=== PATIENT | female | born 1965 | race African-American/Black ===

== ENCOUNTER 2019-09-17 09:17 | Emergency (ER) | payer OTHER ==
[~2019-09-17] VITALS: Ht 172.7 cm; Wt 84.4 kg
[2019-09-17 12:07] LABS: Urine Amorphous Crystal FEW /hpf (None Seen); Urine Bacteria MOD /hpf (None Seen); Urine Blood TRACE /uL (Negative); Urine Mucus FEW (None Seen); Urine Specific Gravity 1.017 (1.001-1.035); Urine WBC 39 /hpf (0 - 5)
[2019-09-17 13:55] LABS: Basophils # (auto) 0.1 10 ^3/uL (0-0.2); Basophils % (auto) 0.7 % (0.0-2.0); Eosinophils # (auto) 0 10 ^3/uL (0-0.8); Eosinophils % (auto) 0.3 % (0.0-7.0); Hematocrit 38.8 % (36.0-46.0); Lymphocytes # (auto) 2.4 10 ^3/uL (0.4-5.4); Lymphocytes % (auto) 22.9 % (10.0-50.0); Mean Corpuscular Hemoglobin 27.8 pg (28.0-32.0); Mean Corpuscular Hgb Conc. 33.4 g/dL (32.0-36.0); Mean Corpuscular Volume 83.2 fL (80.0-100.0); Monocytes # (auto) 0.5 10 ^3/uL (0-1.3); Monocytes % (auto) 4.3 % (0.0-12.0); Neutrophils # (auto) 7.6 10 ^3/uL (1.6-8.6); Neutrophils % (auto) 71.8 % (37.0-80.0); Nucleated Red Blood Cells % 0.1 %; Platelet Count (auto) 421 10^3/uL (140-450); Red Blood Cells 4.66 10^6/uL (4.0-5.20); Red Cell Distribution Width 13.4 % (11.8-14.3); White Blood Cell 10.6 10^3/uL (4.4-10.8)
[2019-09-17 14:10] LABS: Alanine Aminotransferase 22 U/L (13-56); Albumin 3.9 g/dL (3.4-5.0); Anion Gap 8 (5-15); Aspartate Aminotransferase 23 U/L (15-37); BUN/Creatinine Ratio 9.2; Blood Urea Nitrogen 9 mg/dL (7-18); Calcium 9.1 mg/dL (8.5-10.1); Carbon Dioxide 24 mmol/L (21-32); Chloride 106 mmol/L (98-107); GFR African American 76 mL/min; GFR Non-African American 63 mL/min; Glucose 111 mg/dL (74-106); Magnesium 2.7 mg/dL (1.6-2.6); Potassium 3.7 mmol/L (3.5-5.1); Sodium 138 mmol/L (136-145)
[2019-09-17 14:15] LABS: Alkaline Phosphatase 116 U/L (45-117); Bilirubin, Total 0.5 mg/dL (0.2-1.0); Total Protein 8.4 g/dL (6.4-8.2)
[2019-09-17 17:40] VITALS: BP 150/84
== END 2019-09-17 18:59 | disposition home or self-care (01) ==
LOC: ER 09:17
DX: R55 Syncope and collapse (principal); N39.0 Urinary tract infection, site not specified; E78.5 Hyperlipidemia, unspecified; Z90.710 Acquired absence of both cervix and uterus
CPT/HCPCS: 36415; 70450; 71046; 80053; 81001; 83735; 84484; 85025; 93005

== ENCOUNTER 2019-09-21 20:40 | Inpatient (IN) | payer OTHER ==
[~2019-09-21] VITALS: Ht 172.7 cm; Wt 85.2 kg
[2019-09-21 23:45] LABS: Basophils # (auto) 0.1 10 ^3/uL (0-0.2); Basophils % (auto) 0.7 % (0.0-2.0); Eosinophils # (auto) 0 10 ^3/uL (0-0.8); Eosinophils % (auto) 0.2 % (0.0-7.0); Hematocrit 39.7 % (36.0-46.0); Hemoglobin 13.2 g/dL (12.2-16.2); Lymphocytes # (auto) 1.3 10 ^3/uL (0.4-5.4); Lymphocytes % (auto) 11.5 % (10.0-50.0); Mean Corpuscular Hemoglobin 27.4 pg (28.0-32.0); Mean Corpuscular Hgb Conc. 33.1 g/dL (32.0-36.0); Mean Corpuscular Volume 82.7 fL (80.0-100.0); Monocytes # (auto) 0.5 10 ^3/uL (0-1.3); Monocytes % (auto) 4.7 % (0.0-12.0); Neutrophils # (auto) 9.5 10 ^3/uL (1.6-8.6); Neutrophils % (auto) 82.9 % (37.0-80.0); Nucleated Red Blood Cells % 0.1 %; Platelet Count (auto) 396 10^3/uL (140-450); Red Blood Cells 4.81 10^6/uL (4.0-5.20); Red Cell Distribution Width 13.4 % (11.8-14.3); White Blood Cell 11.5 10^3/uL (4.4-10.8)
[2019-09-22 00:16] LABS: Albumin 3.7 g/dL (3.4-5.0); Anion Gap 10 (5-15); BUN/Creatinine Ratio 11.8; Blood Urea Nitrogen 12 mg/dL (7-18); Calcium 9.2 mg/dL (8.5-10.1); Carbon Dioxide 24 mmol/L (21-32); Chloride 104 mmol/L (98-107); GFR African American 73 mL/min; GFR Non-African American 60 mL/min; Glucose 126 mg/dL (74-106); Magnesium 2.6 mg/dL (1.6-2.6); Potassium 3.9 mmol/L (3.5-5.1); Sodium 138 mmol/L (136-145)
[2019-09-22 00:21] LABS: Alanine Aminotransferase 24 U/L (13-56); Alkaline Phosphatase 112 U/L (45-117); Aspartate Aminotransferase 29 U/L (15-37); Bilirubin, Total 0.6 mg/dL (0.2-1.0); Total Protein 8.3 g/dL (6.4-8.2)
[2019-09-22] MEDS ORDERED: SODIUM CHLORIDE 0.9% 1,000 ML IVB ONE (02:40)
[2019-09-22] MEDS ORDERED: LORazepam 2MG/ML-1ML VIAL IV ONE (02:45)
[2019-09-22] MEDS ORDERED: ONDANSETRON HCL 4 MG/2 ML VIAL IV PRN (05:45)
[2019-09-22] MEDS ORDERED: TEMAZEPAM 15 MG CAP PO PRN (05:45)
[2019-09-22] MEDS ORDERED: ACETAMINOPHEN 325 MG TAB PO PRN (05:45)
[2019-09-22] MEDS ORDERED: LORazepam 2MG/ML-1ML VIAL IV PRN ×3 (05:45→22:30)
[2019-09-22 06:54] LABS: Urine Bacteria FEW /hpf (None Seen); Urine Blood 1+ /uL (Negative); Urine Specific Gravity 1.013 (1.001-1.035); Urine WBC 102 /hpf (0 - 5)
[2019-09-22] MEDS: LEVOTHYROXINE SODIUM 50 MCG TAB PO SCH (09:53)
[2019-09-22] MEDS ORDERED: amLODIPine BESYLATE 5 MG TAB PO SCH (10:00)
--- NOTE | 2019-09-22 10:04 | NUR ---
[facility] admit from ER [facility] MENON admitted to [facility] after SBAR received. Patient oriented to David Smith, primary RN, unit, room, bed, and unit policies regarding patient care and visiting hours. Patient weighed by bedscale and encouraged to call if they need something. All questions and concerns addressed and medications truned into pharmacy, patient verbalized understanding.
[2019-09-22 10:11] VITALS: BP 148/98
[2019-09-22 10:43] VITALS: BP 148/98
[2019-09-22] MEDS: FAMOTIDINE 20 MG TAB PO SCH (11:05)
[2019-09-22] MEDS ORDERED: LEVO50TA7 PO (11:15)
[2019-09-22] MEDS ORDERED: CYA100I PO (11:15)
[2019-09-22] MEDS ORDERED: ATOR20TA PO (11:15)
[2019-09-22] MEDS ORDERED: CHOL20007 PO (11:15)
[2019-09-22] MEDS ORDERED: ESCI20TA PO (11:15)
[2019-09-22 13:00] VITALS: BP 146/87
[2019-09-22 16:52] VITALS: BP 134/80
[2019-09-22] MEDS ORDERED: CIPROFLOXACIN HCL 500 MG TAB PO ONE (17:30)
[2019-09-22 22:00] VITALS: BP 140/77
[2019-09-22] MEDS: ATORVASTATIN 20 MG TAB PO SCH (22:08)
[2019-09-22] MEDS: CIPROFLOXACIN HCL 500 MG TAB PO SCH (22:08)
[2019-09-22] MEDS ORDERED: levETIRAcetam 500 MG TAB PO ONE (22:45)
[2019-09-23 05:32] LABS: Basophils # (auto) 0.1 10 ^3/uL (0-0.2); Basophils % (auto) 0.9 % (0.0-2.0); Eosinophils # (auto) 0.1 10 ^3/uL (0-0.8); Eosinophils % (auto) 1.3 % (0.0-7.0); Hematocrit 36.1 % (36.0-46.0); Hemoglobin 11.9 g/dL (12.2-16.2); Lymphocytes # (auto) 2.7 10 ^3/uL (0.4-5.4); Lymphocytes % (auto) 33.6 % (10.0-50.0); Mean Corpuscular Hemoglobin 27.6 pg (28.0-32.0); Mean Corpuscular Volume 83.8 fL (80.0-100.0); Monocytes # (auto) 0.5 10 ^3/uL (0-1.3); Monocytes % (auto) 5.8 % (0.0-12.0); Neutrophils # (auto) 4.7 10 ^3/uL (1.6-8.6); Neutrophils % (auto) 58.4 % (37.0-80.0); Nucleated Red Blood Cells % 0.1 %; Platelet Count (auto) 341 10^3/uL (140-450); Red Blood Cells 4.31 10^6/uL (4.0-5.20); Red Cell Distribution Width 13.2 % (11.8-14.3); White Blood Cell 8.1 10^3/uL (4.4-10.8)
[2019-09-23 05:57] LABS: Potassium 3.7 mmol/L (3.5-5.1)
[2019-09-23] MEDS: LEVOTHYROXINE SODIUM 50 MCG TAB PO SCH (06:05)
[2019-09-23 06:07] VITALS: BP 122/80
[2019-09-23 06:07] LABS: BUN/Creatinine Ratio 12.8; Calcium 9.1 mg/dL (8.5-10.1)
--- NOTE | 2019-09-23 07:30 | NUR ---
Opening Shift Note Assumed care of patient, awake and alert. No S/S of distress/SOB or pain. Instructed on POC and to call for assist PRN, will continue to monitor for changes Q1hr and PRN.
[2019-09-23 08:00] VITALS: BP 120/76
[2019-09-23 09:00] VITALS: BP 120/76
[2019-09-23] MEDS: CIPROFLOXACIN HCL 500 MG TAB PO SCH ×2 (10:21→22:32)
[2019-09-23] MEDS: levETIRAcetam 500 MG TAB PO SCH ×2 (10:22→22:32)
[2019-09-23] MEDS: FAMOTIDINE 20 MG TAB PO SCH ×2 (10:22→22:33)
[2019-09-23] MEDS: amLODIPine BESYLATE 5 MG TAB PO SCH (10:22)
--- NOTE | 2019-09-23 16:48 | NUR ---
EEG- Electroencephalogram completed on 09/23/2019.
[2019-09-23 17:00] VITALS: BP 109/65
--- NOTE | 2019-09-23 19:30 | NUR ---
Opening Shift Note Assumed care of patient, awake and alert. No S/S of distress/SOB or pain. Bed in lowest locked position, side rails up x2, call light within reach. Seizure precautions in place. Instructed on POC and to call for assist PRN, will continue to monitor for changes Q1hr and PRN.
[2019-09-23 22:00] VITALS: BP 117/75
[2019-09-23] MEDS: ATORVASTATIN 20 MG TAB PO SCH (22:33)
[2019-09-24 05:00] VITALS: BP 116/78
[2019-09-24] MEDS: LEVOTHYROXINE SODIUM 50 MCG TAB PO SCH (06:27)
--- NOTE | 2019-09-24 07:03 | NUR ---
Closing Note Patient lying in bed, awake and alert. No S/S of distress/SOB or pain. Bed in lowest locked position, side rails up x2, call light within reach. Will endorse care to dayshift RN.
--- NOTE | 2019-09-24 07:40 | NUR ---
Opening shift note Assumed care of patient from NOC DONOVAN Castellanos. Patient is A0x4, no s/s of distress noted. Bed is in lowest locked position, side rails up x2, seizure precaution in place, and call light is within reach. Updated patient on plan of care and patient verbalized understanding. Will continue to monitor q1hr and PRN.
[2019-09-24 08:39] VITALS: BP 133/75
[2019-09-24] MEDS: levETIRAcetam 500 MG TAB PO SCH ×6 (10:21→23:22)
[2019-09-24] MEDS: FAMOTIDINE 20 MG TAB PO SCH ×2 (10:21→23:04)
[2019-09-24] MEDS: CIPROFLOXACIN HCL 500 MG TAB PO SCH ×2 (10:21→23:04)
[2019-09-24] MEDS: amLODIPine BESYLATE 5 MG TAB PO SCH (10:44)
[2019-09-24 13:20] VITALS: BP 144/96
[2019-09-24 17:00] VITALS: BP 116/66
--- NOTE | 2019-09-24 19:05 | NUR ---
End of shift note Endorsed care of patient to NOC RN Tete. No s/s of distress noted.
--- NOTE | 2019-09-24 21:00 | NUR ---
Dr. Lyons at nurse's station, plan of care discussed. MD to input new orders. Will implement as ordered and continue care.
[2019-09-24 21:30] VITALS: BP 122/75
[2019-09-24] MEDS: ATORVASTATIN 20 MG TAB PO SCH (23:04)
[2019-09-24] MEDS ORDERED: levETIRAcetam 500 MG/5ML INJ IV ONE (23:08)
[2019-09-25] MEDS: LEVOTHYROXINE SODIUM 50 MCG TAB PO SCH (06:28)
--- NOTE | 2019-09-25 07:35 | NUR ---
Opening shift note assumed care of patient from NOC RN Tete. Patient is AOx4, no s/s of distress noted. Bed is in lowest locked position, call light is within reach and side rails are up x2. Updated patient on plan of care and patient verbalized understanding. Will continue to monitor q1hr and PRN.
[2019-09-25 09:00] VITALS: BP 119/78
--- NOTE | 2019-09-25 09:02 | NUR ---
Physician rounding Dr. Mcnair at nurses station, updated MD on patient status. New orders received, will follow through and will continue care.
[2019-09-25] MEDS ORDERED: ERGOCALCIFEROL 50,000 UNIT(1.25MG) CAP PO SCH (09:15)
[2019-09-25] MEDS ORDERED: CYANOCOBALAMIN (B-12) 1000 MCG/1 ML VIAL IM ONE (09:15)
[2019-09-25] MEDS ORDERED: CHOLECALCIFEROL (VITD3) 1,000UNIT=25mCg TAB PO SCH (10:00)
--- NOTE | 2019-09-25 10:13 | NUR ---
Physician rounding Dr. Katz at bedside, updated MD on patient status, and new orders were received. Will continue care.
[2019-09-25] MEDS: levETIRAcetam 500 MG TAB PO SCH (10:23)
[2019-09-25] MEDS: CIPROFLOXACIN HCL 500 MG TAB PO SCH (10:23)
[2019-09-25] MEDS: FAMOTIDINE 20 MG TAB PO SCH (10:24)
[2019-09-25] MEDS: amLODIPine BESYLATE 5 MG TAB PO SCH (10:25)
[2019-09-25] MEDS ORDERED: AML5T PO (10:48)
[2019-09-25] MEDS ORDERED: LEVE100012 PO (10:49)
[2019-09-25 13:00] VITALS: BP 114/76
[2019-09-25 13:37] VITALS: BP 114/76
--- NOTE | 2019-09-25 14:53 | NUR ---
Discharge note Discharge instructions given as ordered. Encourage to follow up with PMD as instructed. All questions and concerns addressed. Patient verbalized understanding. Home medications held in Pharmacy returned to patient. IV removed with catheter intact, pressure dressing applied. Patient taken to vehicle via wheelchair with all personal belongings, accompanied by staff member. No distress noted at time of departure.
--- NOTE | 2019-09-25 15:15 | NUR ---
assessment Patient is a 54 year old female who is alert and oriented. Patients cognitive abilities are intact. Prior to admission patient lived home with family and functioned independently. Patient informed me she is able to care for her own ADLs. Per patient she will return home to her prior living arrangements post discharge and family will transport her home. Patient informed me this was the first time she had a seizure. Per patient told her she cannot drive for now. Per patient she has [address] her and help her when needed. Patients PCP is Dr Martin. Per patient she feels safe returning home on discharge. Patient has no post discharge needs identified at this time. I will continue to monitor and follow up as appropriate. I informed patient she has a right to speak to a social media developer regarding all care. I informed patient she has a right to participate in any and all discharge planning. Patient does not have a POA and advanced directive. I have offered patient information on POA and advanced directives. I informed the patient the advantages and benefits of having an Advanced Directive. Patient verbalized understanding and agreed to discharge plan. Addendum: 09/25/19 at 1519 by Aylin LEMON Amended: Links added.
[2019-09-26] MEDS ORDERED: CYANOCOBALAMIN 500 MCG TAB PO SCH (10:00)
== END 2019-09-25 14:50 | disposition home or self-care (01) | DRG 101 ==
LOC: EDBD 20:40 → ER 20:40 → OVERFLOW 20:41 → CENTRAL 09-22 10:04
PROVIDERS: ADMIT Nurse Practitioner; ATTEND Internal Medicine Nephrology
DX: G40.409 Other generalized epilepsy and epileptic syndromes, not intractable, without status epilepticus (principal); N39.0 Urinary tract infection, site not specified; R65.10 Systemic inflammatory response syndrome (SIRS) of non-infectious origin without acute organ dysfunction; E03.9 Hypothyroidism, unspecified; E55.9 Vitamin D deficiency, unspecified; E53.8 Deficiency of other specified B group vitamins; I10 Essential (primary) hypertension; F41.9 Anxiety disorder, unspecified; Z79.899 Other long term (current) drug therapy; Z80.9 Family history of malignant neoplasm, unspecified; Z90.710 Acquired absence of both cervix and uterus; Z82.3 Family history of stroke; Z83.3 Family history of diabetes mellitus
CPT/HCPCS: 36415; 70450; 70551; 72125; 80048; 80053; 81001; 82306; 82607; 83735; 84484; 85025; 87040; 87086; 95819; G0378; J7060

== ENCOUNTER 2020-02-18 00:31 | Emergency (ER) | payer OTHER ==
[~2020-02-18] VITALS: Ht 170.2 cm; Wt 84.4 kg
[~2020-02-18 00:31] MED LIST: AML5T PO; ATOR20TA PO; CHOL20007 PO; CYA100I PO; ESCI20TA PO; LEVO50TA7 PO
[2020-02-18 01:22] LABS: Basophils # (auto) 0.2 10 ^3/uL (0-0.2); Basophils % (auto) 1.2 % (0.0-2.0); Eosinophils # (auto) 0 10 ^3/uL (0-0.8); Eosinophils % (auto) 0.3 % (0.0-7.0); Hematocrit 36.7 % (36.0-46.0); Hemoglobin 12.3 g/dL (12.2-16.2); Lymphocytes # (auto) 1.9 10 ^3/uL (0.4-5.4); Lymphocytes % (auto) 13.7 % (10.0-50.0); Mean Corpuscular Hemoglobin 27.6 pg (28.0-32.0); Mean Corpuscular Hgb Conc. 33.6 g/dL (32.0-36.0); Mean Corpuscular Volume 81.9 fL (80.0-100.0); Monocytes # (auto) 0.7 10 ^3/uL (0-1.3); Monocytes % (auto) 4.9 % (0.0-12.0); Neutrophils # (auto) 11.1 10 ^3/uL (1.6-8.6); Neutrophils % (auto) 79.9 % (37.0-80.0); Nucleated Red Blood Cells % 0.1 %; Platelet Count (auto) 397 10^3/uL (140-450); Red Blood Cells 4.48 10^6/uL (4.0-5.20); Red Cell Distribution Width 12.9 % (11.8-14.3)
[2020-02-18 01:43] LABS: Albumin 3.7 g/dL (3.4-5.0); BUN/Creatinine Ratio 13.5; Calcium 9.3 mg/dL (8.5-10.1); Potassium 3.8 mmol/L (3.5-5.1)
[2020-02-18 01:45] LABS: Bilirubin, Total 0.3 mg/dL (0.2-1.0); Total Protein 7.9 g/dL (6.4-8.2)
[2020-02-18 02:22] LABS: Urine Bacteria NONE SEEN /hpf (None Seen); Urine Blood Negative /uL (Negative); Urine Hyaline Cast FEW /lpf (0 - 2); Urine Mucus FEW (None Seen); Urine Specific Gravity 1.019 (1.001-1.035); Urine WBC 2 /hpf (0 - 5)
[2020-02-18 02:27] LABS: Amphetamine Screen, Urine NEGATIVE (NEGATIVE); Barbiturate Scree,Urine NEGATIVE (NEGATIVE); Benzodiazephine Screen, Urine NEGATIVE (NEGATIVE); Cannabinoid Screen, Urine NEGATIVE (NEGATIVE); Cocaine Screen, Urine NEGATIVE (NEGATIVE); Opiate Scree,Urine NEGATIVE (NEGATIVE); Phencyclidine Screen, Urine NEGATIVE (NEGATIVE)
[2020-02-18 02:47] LABS: Alcohol, Urine < 3.0 mg/dL (0-10)
[2020-02-18 03:56] VITALS: BP 121/81
== END 2020-02-18 04:00 | disposition home or self-care (01) ==
LOC: EDBD 00:31 → ER 00:31
DX: D72.829 Elevated white blood cell count, unspecified (principal); R56.9 Unspecified convulsions; E78.5 Hyperlipidemia, unspecified
CPT/HCPCS: 36415; 70450; 80053; 80307; 81001; 85025

== ENCOUNTER 2022-06-17 18:19 | Emergency (ER) | payer BC, OTHER ==
[~2022-06-17] VITALS: Ht 170.2 cm; Wt 83.5 kg
[2022-06-17 19:42] LABS: Basophils # (auto) 0.1 10 ^3/uL (0-0.2); Eosinophils # (auto) 0.1 10 ^3/uL (0-0.8); Eosinophils % (auto) 1.2 % (0.0-7.0); Hematocrit 36.1 % (36.0-46.0); Hemoglobin 11.9 g/dL (12.2-16.2); Lymphocytes # (auto) 3.5 10 ^3/uL (0.4-5.4); Lymphocytes % (auto) 39.4 % (10.0-50.0); Mean Corpuscular Hemoglobin 26.9 pg (28.0-32.0); Mean Corpuscular Hgb Conc. 33.1 g/dL (32.0-36.0); Mean Corpuscular Volume 81.4 fL (80.0-100.0); Monocytes # (auto) 0.6 10 ^3/uL (0-1.3); Monocytes % (auto) 6.7 % (0.0-12.0); Neutrophils # (auto) 4.5 10 ^3/uL (1.6-8.6); Neutrophils % (auto) 51.7 % (37.0-80.0); Nucleated Red Blood Cells % 0.1 %; Red Blood Cells 4.43 10^6/uL (4.0-5.20); Red Cell Distribution Width 13.3 % (11.8-14.3); White Blood Cell 8.8 10^3/uL (4.4-10.8)
[2022-06-17 20:01] LABS: Albumin 3.8 g/dL (3.4-5.0); BUN/Creatinine Ratio 15.7 (10.0-20.0); Calcium 9.7 mg/dL (8.5-10.1); Potassium 3.6 mmol/L (3.5-5.1)
[2022-06-17 20:02] LABS: INR 1.01 (0.9-1.15); Partial Thromboplastin Time 28.8 sec (24.6-33.4)
[2022-06-17 20:03] LABS: Bilirubin, Total 0.4 mg/dL (0.2-1.0); Total Protein 8.3 g/dL (6.4-8.2)
[2022-06-17] MEDS ORDERED: GABA300C10 PO ×2 (22:35)
[2022-06-17 23:06] VITALS: BP 177/84
[2022-06-18] MEDS ORDERED: GABA300C10 PO (16:51)
== END 2022-06-17 23:12 | disposition home or self-care (01) ==
LOC: ER 18:19
DX: M47.892 Other spondylosis, cervical region (principal); E78.5 Hyperlipidemia, unspecified; Z88.0 Allergy status to penicillin; Z88.8 Allergy status to other drugs, medicaments and biological substances; Z79.899 Other long term (current) drug therapy; Z90.710 Acquired absence of both cervix and uterus
CPT/HCPCS: 36415; 70450; 72040; 80053; 83735; 84484; 85025; 85610; 85730; 93005

== ENCOUNTER 2022-06-21 11:16 | Emergency (ER) | payer BC ==
[~2022-06-21] VITALS: Ht 170.2 cm; Wt 82.3 kg
[~2022-06-21 11:16] MED LIST changes: +GABA300C10 PO
[2022-06-21 14:00] VITALS: BP 140/81
[2022-06-21] MEDS ORDERED: LORazepam 2MG/ML-1ML VIAL IM ONE (15:00)
[2022-06-21] MEDS ORDERED: ALPR0.25 PO (16:18)
[2022-06-22] MEDS ORDERED: LORA0.5T20 PO (12:16)
== END 2022-06-21 16:35 | disposition home or self-care (01) ==
LOC: ER 11:16
DX: F41.9 Anxiety disorder, unspecified (principal); E78.5 Hyperlipidemia, unspecified; Z88.0 Allergy status to penicillin; Z88.8 Allergy status to other drugs, medicaments and biological substances; Z79.899 Other long term (current) drug therapy; Z90.710 Acquired absence of both cervix and uterus
CPT/HCPCS: 96372; 99283; J2060

== ENCOUNTER 2022-06-22 09:19 | Inpatient (IN) | payer BC ==
[~2022-06-22] VITALS: Ht 170.2 cm; Wt 84.3 kg
[~2022-06-22 09:19] MED LIST changes: +ALPR0.25 PO
[2022-06-22] MEDS ORDERED: SODIUM CHLORIDE 0.9% 1,000 ML IV ONE (09:45)
[2022-06-22 10:16] LABS: Basophils # (auto) 0.1 10 ^3/uL (0-0.2); Eosinophils # (auto) 0.1 10 ^3/uL (0-0.8); Hemoglobin 12.7 g/dL (12.2-16.2); Lymphocytes # (auto) 2.5 10 ^3/uL (0.4-5.4); Neutrophils # (auto) 3.8 10 ^3/uL (1.6-8.6); White Blood Cell 6.9 10^3/uL (4.4-10.8)
[2022-06-22 10:20] LABS: Basophils % (auto) 1.1 % (0.0-2.0); Eosinophils % (auto) 1.6 % (0.0-7.0); Hematocrit 37.2 % (36.0-46.0); Lymphocytes % (auto) 35.5 % (10.0-50.0); Mean Corpuscular Hemoglobin 27.1 pg (28.0-32.0); Mean Corpuscular Hgb Conc. 34.2 g/dL (32.0-36.0); Mean Corpuscular Volume 79.5 fL (80.0-100.0); Monocytes # (auto) 0.5 10 ^3/uL (0-1.3); Monocytes % (auto) 6.6 % (0.0-12.0); Neutrophils % (auto) 55.2 % (37.0-80.0); Nucleated Red Blood Cells % 0.2 %; Red Blood Cells 4.68 10^6/uL (4.0-5.20); Red Cell Distribution Width 13.5 % (11.8-14.3)
[2022-06-22 11:11] LABS: Alanine Aminotransferase 15 U/L (13-56); Albumin 3.5 g/dL (3.4-5.0); Anion Gap 7 (5-15); Aspartate Aminotransferase 15 U/L (15-37); Blood Urea Nitrogen 8 mg/dL (7-18); Calcium 9.3 mg/dL (8.5-10.1); Carbon Dioxide 24 mmol/L (21-32); Chloride 107 mmol/L (98-107); GFR African American 96 mL/min; GFR Non-African American 79 mL/min; Glucose 105 mg/dL (74-106); Potassium 3.9 mmol/L (3.5-5.1); Sodium 138 mmol/L (136-145)
[2022-06-22 11:15] LABS: Alkaline Phosphatase 101 U/L (45-117); Bilirubin, Total 0.6 mg/dL (0.2-1.0); Total Protein 8.2 g/dL (6.4-8.2)
[2022-06-22] MEDS ORDERED: LORA0.5T20 PO (12:16)
[2022-06-22] MEDS ORDERED: LORazepam 2MG/ML-1ML VIAL IV ONE (12:30)
[2022-06-22] MEDS ORDERED: MORPHINE SULFATE INJ 2 MG/ml SYRG IV PRN ×2 (15:45→16:00)
[2022-06-22] MEDS ORDERED: ASPirin 325 MG TAB PO ONE (15:45)
[2022-06-22] MEDS ORDERED: ONDANSETRON HCL 4 MG/2 ML VIAL IV PRN (15:45)
[2022-06-22] MEDS ORDERED: NITROGLYCERIN 0.4 MG SL TAB SL PRN (15:45)
[2022-06-22] MEDS: SODIUM CHLORIDE 0.9% 1,000 ML IV SCH (17:15)
[2022-06-22] MEDS: GABAPENTIN 300 MG CAP PO SCH ×3 (18:00→22:09)
[2022-06-22] MEDS ORDERED: LORazepam 2MG/ML-1ML VIAL IV PRN ×2 (20:45)
[2022-06-22] MEDS: ATORVASTATIN 20 MG TAB PO SCH (22:00)
[2022-06-22] MEDS ORDERED: levETIRAcetam 500 MG/5ML INJ IV ONE (22:06)
[2022-06-23 00:36] LABS: Urine Bacteria FEW /hpf (None Seen); Urine Blood Negative /uL (Negative); Urine Specific Gravity 1.002 (1.001-1.035); Urine WBC <1 /hpf (0 - 5)
[2022-06-23 01:08] LABS: Alcohol, Urine < 3.0 mg/dL (0-10); Amphetamine Screen, Urine NEGATIVE (NEGATIVE); Barbiturate Scree,Urine NEGATIVE (NEGATIVE); Benzodiazephine Screen, Urine NEGATIVE (NEGATIVE); Cannabinoid Screen, Urine NEGATIVE (NEGATIVE); Cocaine Screen, Urine NEGATIVE (NEGATIVE); Opiate Scree,Urine NEGATIVE (NEGATIVE); Phencyclidine Screen, Urine NEGATIVE (NEGATIVE)
[2022-06-23] MEDS: GABAPENTIN 300 MG CAP PO SCH ×4 (06:27→22:07)
[2022-06-23] MEDS: LEVOTHYROXINE SODIUM 50 MCG TAB PO SCH (06:42)
[2022-06-23] MEDS: SODIUM CHLORIDE 0.9% 1,000 ML IV SCH ×3 (06:42→22:08)
[2022-06-23 06:46] LABS: Basophils # (auto) 0 10 ^3/uL (0-0.2); Basophils % (auto) 0.6 % (0.0-2.0); Eosinophils # (auto) 0.1 10 ^3/uL (0-0.8); Eosinophils % (auto) 1.6 % (0.0-7.0); Hematocrit 32.3 % (36.0-46.0); Hemoglobin 11.2 g/dL (12.2-16.2); Lymphocytes # (auto) 2.1 10 ^3/uL (0.4-5.4); Lymphocytes % (auto) 33.6 % (10.0-50.0); Mean Corpuscular Hemoglobin 27.9 pg (28.0-32.0); Mean Corpuscular Hgb Conc. 34.7 g/dL (32.0-36.0); Mean Corpuscular Volume 80.5 fL (80.0-100.0); Monocytes # (auto) 0.4 10 ^3/uL (0-1.3); Neutrophils # (auto) 3.6 10 ^3/uL (1.6-8.6); Neutrophils % (auto) 57.2 % (37.0-80.0); Nucleated Red Blood Cells % 0.1 %; Red Blood Cells 4.01 10^6/uL (4.0-5.20); Red Cell Distribution Width 13.2 % (11.8-14.3); White Blood Cell 6.3 10^3/uL (4.4-10.8)
[2022-06-23 07:33] LABS: Albumin 3.2 g/dL (3.4-5.0); BUN/Creatinine Ratio 10.3 (10.0-20.0); Calcium 9.3 mg/dL (8.5-10.1); Potassium 3.4 mmol/L (3.5-5.1)
[2022-06-23] MEDS: CHOLECALCIFEROL (VITD3) 2,000 UNIT CAP/TAB PO SCH (09:10)
[2022-06-23] MEDS: CITALOPRAM HYDROBR 20 MG TAB PO SCH (09:10)
[2022-06-23] MEDS: LACOSAMIDE 50 MG TAB PO SCH ×2 (09:10→22:01)
[2022-06-23] MEDS: ASPirin 81 mg TAB PO SCH (09:10)
[2022-06-23] MEDS: amLODIPine BESYLATE 5 MG TAB PO SCH (09:16)
[2022-06-23] MEDS: ENOXAPARIN SOD 40 MG/0.4 ML SYRINGE SC SCH (09:16)
[2022-06-23 09:24] LABS: Bilirubin, Total 0.6 mg/dL (0.2-1.0); Total Protein 7.2 g/dL (6.4-8.2)
[2022-06-23] MEDS ORDERED: ATORVASTATIN 20 MG TAB PO SCH (10:00)
[2022-06-23 15:29] VITALS: BP 132/78
[2022-06-23 15:30] VITALS: BP 116/67
[2022-06-23 16:33] LABS: Cholesterol 110 mg/dL (< 200); HDL Cholesterol 41 mg/dL (40-59); LDL Cholesterol 56 mg/dL (< 100); Triglycerides 134 mg/dL (< 150)
[2022-06-23 22:01] VITALS: BP 120/71
[2022-06-23] MEDS: ATORVASTATIN 20 MG TAB PO SCH (22:07)
[2022-06-24 05:05] VITALS: BP 134/78
[2022-06-24] MEDS: GABAPENTIN 300 MG CAP PO SCH ×4 (06:00→22:00)
[2022-06-24 06:07] LABS: Basophils # (auto) 0.1 10 ^3/uL (0-0.2); Basophils % (auto) 0.9 % (0.0-2.0); Eosinophils # (auto) 0.2 10 ^3/uL (0-0.8); Eosinophils % (auto) 2.7 % (0.0-7.0); Hematocrit 34.1 % (36.0-46.0); Hemoglobin 11.4 g/dL (12.2-16.2); Lymphocytes # (auto) 2.4 10 ^3/uL (0.4-5.4); Lymphocytes % (auto) 40.5 % (10.0-50.0); Mean Corpuscular Hemoglobin 27.4 pg (28.0-32.0); Mean Corpuscular Hgb Conc. 33.3 g/dL (32.0-36.0); Mean Corpuscular Volume 82.3 fL (80.0-100.0); Monocytes # (auto) 0.4 10 ^3/uL (0-1.3); Monocytes % (auto) 7.1 % (0.0-12.0); Neutrophils # (auto) 2.8 10 ^3/uL (1.6-8.6); Neutrophils % (auto) 48.8 % (37.0-80.0); Nucleated Red Blood Cells % 0.1 %; Red Blood Cells 4.15 10^6/uL (4.0-5.20); Red Cell Distribution Width 13.5 % (11.8-14.3); White Blood Cell 5.8 10^3/uL (4.4-10.8)
[2022-06-24 06:26] LABS: Potassium 3.8 mmol/L (3.5-5.1)
[2022-06-24 06:29] LABS: BUN/Creatinine Ratio 7.9 (10.0-20.0)
[2022-06-24] MEDS: LEVOTHYROXINE SODIUM 50 MCG TAB PO SCH (06:58)
[2022-06-24] MEDS: SODIUM CHLORIDE 0.9% 1,000 ML IV SCH (07:51)
[2022-06-24 08:24] VITALS: BP 150/79
[2022-06-24] MEDS: ENOXAPARIN SOD 40 MG/0.4 ML SYRINGE SC SCH (09:28)
[2022-06-24] MEDS: CHOLECALCIFEROL (VITD3) 2,000 UNIT CAP/TAB PO SCH (09:30)
[2022-06-24] MEDS: ASPirin 81 mg TAB PO SCH (09:30)
[2022-06-24] MEDS: LACOSAMIDE 50 MG TAB PO SCH ×2 (09:31→21:56)
[2022-06-24] MEDS: CITALOPRAM HYDROBR 20 MG TAB PO SCH (09:31)
[2022-06-24] MEDS: amLODIPine BESYLATE 5 MG TAB PO SCH (09:31)
[2022-06-24 12:30] VITALS: BP 120/77
[2022-06-24 16:50] VITALS: BP 129/75
[2022-06-24] MEDS ORDERED: HYDROcodone-ACET 5/325MG TAB PO PRN (17:30)
[2022-06-24] MEDS: ATORVASTATIN 20 MG TAB PO SCH (21:56)
[2022-06-24 22:00] VITALS: BP 129/78
[2022-06-24] MEDS: ALPRAZolam 0.5 MG TAB PO PRN (22:10)
[2022-06-25] MEDS: ACETAMINOPHEN 325 MG TAB PO PRN ×4 (01:26→23:16)
[2022-06-25 05:00] VITALS: BP 130/73
[2022-06-25] MEDS: GABAPENTIN 300 MG CAP PO SCH ×3 (05:36→16:51)
[2022-06-25 06:31] LABS: BUN/Creatinine Ratio 6.7 (10.0-20.0); Potassium 4.3 mmol/L (3.5-5.1)
[2022-06-25] MEDS: LEVOTHYROXINE SODIUM 50 MCG TAB PO SCH (06:32)
[2022-06-25 06:35] LABS: Basophils # (auto) 0.1 10 ^3/uL (0-0.2); Eosinophils # (auto) 0.1 10 ^3/uL (0-0.8); Eosinophils % (auto) 1.4 % (0.0-7.0); Hematocrit 35.3 % (36.0-46.0); Hemoglobin 11.9 g/dL (12.2-16.2); Lymphocytes # (auto) 2.9 10 ^3/uL (0.4-5.4); Lymphocytes % (auto) 35.5 % (10.0-50.0); Mean Corpuscular Hemoglobin 27.6 pg (28.0-32.0); Mean Corpuscular Hgb Conc. 33.6 g/dL (32.0-36.0); Monocytes # (auto) 0.6 10 ^3/uL (0-1.3); Monocytes % (auto) 7.3 % (0.0-12.0); Neutrophils # (auto) 4.4 10 ^3/uL (1.6-8.6); Neutrophils % (auto) 54.8 % (37.0-80.0); Nucleated Red Blood Cells % 0.1 %; Red Cell Distribution Width 13.2 % (11.8-14.3); White Blood Cell 8.1 10^3/uL (4.4-10.8)
[2022-06-25 08:52] VITALS: BP 133/77
[2022-06-25] MEDS: CHOLECALCIFEROL (VITD3) 2,000 UNIT CAP/TAB PO SCH (09:17)
[2022-06-25] MEDS: LACOSAMIDE 50 MG TAB PO SCH ×2 (09:17→21:42)
[2022-06-25] MEDS: CITALOPRAM HYDROBR 20 MG TAB PO SCH (09:17)
[2022-06-25] MEDS: ENOXAPARIN SOD 40 MG/0.4 ML SYRINGE SC SCH (09:18)
[2022-06-25] MEDS: ASPirin 81 mg TAB PO SCH (09:18)
[2022-06-25] MEDS: amLODIPine BESYLATE 5 MG TAB PO SCH (10:30)
[2022-06-25 13:00] VITALS: BP 145/78
[2022-06-25 16:32] VITALS: BP 145/78
[2022-06-25] MEDS: ALPRAZolam 0.5 MG TAB PO PRN (16:51)
[2022-06-25] MEDS: ATORVASTATIN 20 MG TAB PO SCH (21:43)
[2022-06-25 22:00] VITALS: BP 140/73
[2022-06-26] MEDS: ALPRAZolam 0.5 MG TAB PO PRN (01:06)
[2022-06-26 05:00] VITALS: BP 116/84
[2022-06-26] MEDS: LEVOTHYROXINE SODIUM 50 MCG TAB PO SCH (06:51)
[2022-06-26 09:00] VITALS: BP 104/64
[2022-06-26] MEDS: ENOXAPARIN SOD 40 MG/0.4 ML SYRINGE SC SCH (10:00)
[2022-06-26] MEDS: CITALOPRAM HYDROBR 20 MG TAB PO SCH (10:00)
[2022-06-26] MEDS: CHOLECALCIFEROL (VITD3) 2,000 UNIT CAP/TAB PO SCH (10:00)
[2022-06-26] MEDS: amLODIPine BESYLATE 5 MG TAB PO SCH (10:00)
[2022-06-26] MEDS: ASPirin 81 mg TAB PO SCH (10:00)
[2022-06-26] MEDS: ACETAMINOPHEN 325 MG TAB PO PRN ×2 (10:00→16:20)
[2022-06-26] MEDS: LACOSAMIDE 50 MG TAB PO SCH (10:00)
[2022-06-26] MEDS ORDERED: LACO200T PO ×4 (12:52→12:56)
[2022-06-26] MEDS ORDERED: LEVE750T15 PO (12:53)
[2022-06-26] MEDS ORDERED: LACO100T PO (12:54)
[2022-06-26 13:00] VITALS: BP 131/79
[2022-06-26 14:27] VITALS: BP 104/64
[2022-06-26 16:00] VITALS: BP 137/87
== END 2022-06-26 17:20 | disposition home or self-care (01) | DRG 93 ==
LOC: ER 09:19 → TELE 15:42 → TELE-WESTW 06-23 15:12
PROVIDERS: ADMIT Registered Nurse; ATTEND Internal Medicine Pulmonary Disease
DX: R25.1 Tremor, unspecified (principal); F41.9 Anxiety disorder, unspecified; E78.5 Hyperlipidemia, unspecified; E03.9 Hypothyroidism, unspecified; G40.909 Epilepsy, unspecified, not intractable, without status epilepticus; G47.10 Hypersomnia, unspecified; I10 Essential (primary) hypertension; M47.22 Other spondylosis with radiculopathy, cervical region; M48.00 Spinal stenosis, site unspecified; M50.10 Cervical disc disorder with radiculopathy, unspecified cervical region; Z79.899 Other long term (current) drug therapy; Z88.0 Allergy status to penicillin; Z82.3 Family history of stroke; Z83.3 Family history of diabetes mellitus; Z90.710 Acquired absence of both cervix and uterus
CPT/HCPCS: 36415; 70450; 70551; 71045; 72125; 73070; 80048; 80053; 80061; 80307; 81001; 82542; 84443; 84484; 85025; 93005; 93306; 93886; 95819; 96374; G0378; J2405; J7060

== ENCOUNTER 2023-04-24 18:16 | Emergency (ER) | payer BC ==
[~2023-04-24] VITALS: Ht 172.7 cm; Wt 90.4 kg
[~2023-04-24 18:16] MED LIST changes: -GABA300C10 PO; +LACO100T PO; +LACO200T PO; +LEVE750T15 PO; +LORA-1121 PO
[2023-04-24 18:27] VITALS: BP 127/68; PULSE 82; RESP 17; TEMP 98
[2023-04-24] MEDS ORDERED: IBUP1TAB5 PO (21:25)
[2023-04-24 21:44] VITALS: O2SAT 96
== END 2023-04-24 21:57 | disposition home or self-care (01) ==
LOC: ER 18:16
DX: S00.03XA Contusion of scalp, initial encounter (principal); I10 Essential (primary) hypertension; E78.5 Hyperlipidemia, unspecified; F41.9 Anxiety disorder, unspecified; Z98.890 Other specified postprocedural states; W01.198A Fall on same level from slipping, tripping and stumbling with subsequent striking against other object, initial encounter; Y93.89 Activity, other specified; Y92.89 Other specified places as the place of occurrence of the external cause; Y99.8 Other external cause status
CPT/HCPCS: 70450